=== PATIENT | female | born 1950 | race Caucasian/White ===

== ENCOUNTER 2018-09-29 10:49 | Emergency (ER) | payer MEDICARE, OTHER ==
[~2018-09-29] VITALS: Ht 147.3 cm; Wt 44.0 kg
[~2018-09-29 10:49] MED LIST: ALBUTEROL; AZMACORT; PROAIR
[2018-09-29] MEDS ORDERED: IBUPROFEN 800MG TABLET PO ONE (12:15)
[2018-09-29 12:29] VITALS: BP 129/81
== END 2018-09-29 13:51 | disposition home or self-care (01) ==
LOC: ER 10:49
DX: S52.591A Other fractures of lower end of right radius, initial encounter for closed fracture (principal); W01.0XXA Fall on same level from slipping, tripping and stumbling without subsequent striking against object, initial encounter; Y93.89 Activity, other specified; Y92.89 Other specified places as the place of occurrence of the external cause; Y99.8 Other external cause status; J45.909 Unspecified asthma, uncomplicated; Z90.49 Acquired absence of other specified parts of digestive tract; Z88.1 Allergy status to other antibiotic agents; Z91.012 Allergy to eggs; Z91.018 Allergy to other foods
CPT/HCPCS: 29125; 73090; 73110; 73130; 99283; A4565

== ENCOUNTER 2020-10-06 18:29 | Emergency (ER) | payer BC, MEDICAID ==
[~2020-10-06] VITALS: Ht 142.2 cm; Wt 44.0 kg
[2020-10-06] MEDS ORDERED: KETOROLAC 60MG/2ML VIAL IM ONE (20:00)
[2020-10-06 20:30] VITALS: BP 141/62
[2020-10-06] MEDS ORDERED: CYCL10TA7 MT (20:38)
== END 2020-10-06 20:30 | disposition home or self-care (01) ==
LOC: ER 18:29
DX: M79.18 Myalgia, other site (principal); J45.909 Unspecified asthma, uncomplicated; Z91.012 Allergy to eggs; Z88.1 Allergy status to other antibiotic agents; Z91.018 Allergy to other foods; Z90.49 Acquired absence of other specified parts of digestive tract
CPT/HCPCS: 96372; 99283; J1885

== ENCOUNTER 2020-10-08 19:19 | Emergency (ER) | payer BC, MEDICAID ==
[~2020-10-08] VITALS: Ht 142.2 cm; Wt 44.0 kg
[~2020-10-08 19:19] MED LIST changes: +CYCL10TA7 MT
[2020-10-08] MEDS ORDERED: ACETAMINOPHEN 325MG TABLET PO ONE (19:45)
[2020-10-08 23:38] VITALS: BP 146/56
== END 2020-10-08 23:39 | disposition home or self-care (01) ==
LOC: ER 19:34
DX: R04.0 Epistaxis (principal); J45.909 Unspecified asthma, uncomplicated; Z90.49 Acquired absence of other specified parts of digestive tract; Z79.899 Other long term (current) drug therapy; Z88.1 Allergy status to other antibiotic agents
CPT/HCPCS: 36415; 85651; 93005; 99284